=== PATIENT | female | born 1995 | race Caucasian/White ===

== ENCOUNTER 2018-11-15 00:33 | Emergency (ER) | payer SELFPAY ==
[~2018-11-15] VITALS: Ht 167.6 cm; Wt 119.5 kg
[~2018-11-15 00:33] MED LIST: FAMO-96 PO; IBUP-1542 PO; NITR-58 PO; ONDA4TAB14 PO; TRAM50TA2 PO
[2018-11-15 00:41] VITALS: Ht 167.6 cm; Wt 119.5 kg
[2018-11-15] MEDS ORDERED: KETOROLAC 30 MG INJ IM STA (00:53)
[2018-11-15] MEDS ORDERED: ONDANSETRON (ODT) 4 MG TAB ODT STA (01:13)
--- NOTE | 2018-11-15 01:21 | ERD ---
ER Documentation Chief Complaint Chief Complaint Epigastric pain,n/v since 9pm HPI 23-year-old female with no reported past medical or surgical history, obesity who presents with complaint of epigastric abdominal pain since around 9 PM this morning. Describes pain as sharp type pain is intermittent radiation, patient reports feeling like spasms. Patient had intermittent nausea and vomiting about 3 episodes of nonbilious nonbloody. She otherwise reports chills but no fevers, no diarrhea, constipation, dysuria, vaginal bleeding, vaginal discharge. Currently on last days of her menstrual cycle. Last meal before onset of sym ptoms around 1 PM and consisted of being salmon cooked at home. She otherwise is without complaint. ROS All systems reviewed and are negative except as per history of present illness. Medications Home Meds Active Scripts Ibuprofen* (Motrin*) 600 Mg Tab, 600 MG PO Q6H PRN for PAIN AND OR ELEVATED TEMP, #30 TAB Prov:KELVIN RAWLS PA-C 11/15/18 Tramadol HCl (Tramadol HCl) 50 Mg Tablet, 50 MG PO Q6 PRN for PAIN, #20 TAB Prov:JEKELVIN URIARTE PA-C 11/15/18 Famotidine* (Pepcid*) 20 Mg Tablet, 20 MG PO BID for 4 Days, TAB Prov:KELVIN RAWLS PA-C 11/15/18 Ondansetron (Ondansetron Odt) 4 Mg Tab.rapdis, 4 MG PO Q6H PRN for NAUSEA AND/OR VOMITING, #10 TAB Prov:JEADEOLA URIARTEHO PA-C 11/15/18 Allergies Allergies: Coded Allergies: No Known Allergy (Unverified , 11/15/18) PMhx/Soc Medical and Surgical Hx: pt denies Medical Hx, pt denies Surgical Hx History of Surgery: No Anesthesia Reaction: No Hx Neurological Disorder: No Hx Respiratory Disorders: No Hx Cardiac Disorders: No Hx Psychiatric Problems: No Hx Miscellaneous Medical Probl: No Hx Alcohol Use: No Hx Substance Use: No Hx Tobacco Use: No Smoking Status: Never smoker FmHx Family History: No diabetes, No coronary disease, No other Physical Exam Vitals Vital Signs Date Temp Pulse Resp B/P (MAP) Pulse Ox O2 O2 Flow FiO2 Time Delivery Rate 11/15/18 99.6 84 17 121/78 98 00:41 (92) Physical Exam I have reviewed the triage vital signs. Const: Well nourished, well developed, appears stated age, morbidly obese Eyes: PERRL, no conjunctival injection HENT: NCAT, Neck supple without meningismus CV: RRR, Warm, well-perfused extremities RESP: CTAB, Unlabored respiratory effort GI: soft, tender to deep palpation to epigastrium, no flank tenderness, no right upper quadrant tenderness, non-distended, no masses MSK: No gross deformities appreciated Skin: Warm, dry. No rashes Neuro: grossly non focal Psych: Appropriate mood and affect. Result Diagram: 11/15/18 0110 Results 24 hrs Laboratory Tests Test 11/15/18 01:00 11/15/18 01:10 POC Beta HCG, Qualitative NEGATIVE White Blood Count 16.4 10^3/ul Red Blood Count 4.90 10^6/ul Hemoglobin 10.7 g/dl Hematocrit 36.4 % Mean Corpuscular Volume 74.3 fl Mean Corpuscular Hemoglobin 21.8 pg Mean Corpuscular Hemoglobin Concent 29.4 g/dl Red Cell Distribution Width 17.8 % Platelet Count 325 10^3/UL Mean Platelet Volume 10.3 fl Immature Granulocytes % 0.400 % Neutrophils % 73.1 % Lymphocytes % 20.0 % Monocytes % 5.7 % Eosinophils % 0.5 % Basophils % 0.3 % Nucleated Red Blood Cells % 0.0 /100WBC Immature Granulocytes # 0.070 10^3/ul Neutrophils # 12.0 10^3/ul Lymphocytes # 3.3 10^3/ul Monocytes # 0.9 10^3/ul Eosinophils # 0.1 10^3/ul Basophils # 0.1 10^3/ul Nucleated Red Blood Cells # 0.0 10^3/ul Urine Color YADIEL Urine Clarity CLOUDY Urine pH 6.0 Urine Specific [place] 1.023 Urine Ketones NEGATIVE mg/dL Urine Nitrite NEGATIVE mg/dL Urine Bilirubin NEGATIVE mg/dL Urine Urobilinogen NEGATIVE mg/dL Urine Leukocyte Esterase 2+ Virginie/ul Urine Microscopic RBC > 182 /HPF Urine Microscopic WBC 123 /HPF Urine Squamous Epithelial Cells MANY /HPF Urine Bacteria FEW /HPF Urine Mucus MODERATE /HPF Urine Hemoglobin 3+ mg/dL Urine Glucose NEGATIVE mg/dL Urine Total Protein 2+ mg/dl Current Medications Medications Dose Sig/Royce Start Time Status Last (Trade) Ordered Route PRN Stop Time Admin Dose Reason Admin Ketorolac 30 mg ONCE STAT 11/15/18 DC 11/15/18 Tromethamine IM 00:53 01:11 (Toradol) 11/15/18 00:58 Ondansetron 4 mg ONCE STAT 11/15/18 DC 11/15/18 HCl (Zofran ODT 01:13 01:17 Odt) 11/15/18 01:14 40 ml ONCE ONCE 11/15/18 DC 11/15/18 Miscellaneous PO 01:30 01:35 Medication 11/15/18 01:31 (Gi Cocktail (2)) Procedures/MDM 23 yo non- woman presenting with abdominal pain. Given patients test is negative, highly doubt ectopic . Considered causes of female-specific abdominal pain unrelated to (e.g., pelvic inflammatory disease with or without tubo-ovarian abscess, [id number], etc.). Also considered causes of abdominal pain that are not gender-specific (e.g., appendicitis, volvulus, small bowel obstruction, mesenteric adenitis, acute cholecystitis/choledocholithiasis and other biliary pathology, etc.). Patient well-appearing with normal vital signs. Laboratory testing and imaging here reviewed and normal. Patient given strict return precautions for worsening pain, inability to eat/drink, fevers (temperature over 100.4F), or other concerns. Patient instructed to follow up with their primary doctor and is agreeable; all questions were answered. ED course: Gallbladder ultrasound UA 123 WBC, 2+ leukocyte esterase, positive RBC Labs Patient signed out to GLORIA Beal, to follow up labs and imaging, additional Rx DISPOSITION PLAN: We discussed follow up with the patient's primary care doctor within 24 to 48 hours. Patient counseled regarding my diagnostic impression and care plan. Prior to discharge all questions answered. Pt agrees with treatment plan and underst ands strict return precautions. Precautionary instructions provided including instructions to return to the ER if not improving or for any worsening or changing symptoms or concerns. Disclaimer: Inadvertent spelling and grammatical errors are likely due to EHR/dictation software use and do not reflect on the overall quality of patient care. Also, please note that the electronic time recorded on this note does not necessarily reflect the actual time of the patient encounter. Departure Diagnosis: Primary Impression: Epigastric pain Condition: Stable KELVIN RAWLS PA-C Nov 15, 2018 01:21
[2018-11-15] MEDS ORDERED: LIDOCAINE/MYLANTA 40 ML BTL PO ONE (01:30)
--- NOTE | 2018-11-15 02:03 | EN ---
Date/Time of Note Date/Time of Note DATE: 11/15/18 TIME: 01:56 ER Progress Note Patient was signed out to me pending blood work and imaging study results. In summary, patient is a 23-year-old female who presents the ER for concerns of epigastric pain and vomiting which started approximately 4 hours ago. Patient denied any fevers. Patient denies any chest pain or shortness of breath. Patient denied any urinary symptoms. MEDICAL DECISION MAKING: Patient is a 23-year-old female presents to the ER for concerns of epigastric pain along with vomiting which started 4 hours ago. Patient states she did eat spicy foods for dinner. Vital signs were reviewed. Patient is afebrile. Patient was not hypoxic. Patient was hemodynamically stable. CBC showed WBC count of 16.4. Mild anemia noted. No indication for emergent blood test at this time. Patient's neutrophil count was within normal limits. CMP showed no evidence of electrolyte abnormalities, severe acidosis, alkalosis, renal failure, or liver disease. Lipase showed no evidence of acute pancreatitis. UA showed no evidence of acute infection or hematuria. Low suspicion for UA did show 2+ leukocyte esterase, positive WBCs and positive RBCs. Please note patient is on her menstrual period. Gallbladder ultrasound was unremarkable. See formal report. Patient was given Toradol, Zofran and GI cocktail. Upon repeat examination by myself, patient had improvement in pain. Patient denies any additional abdomina l pain. Patient no episodes of vomiting throughout the ED course. Given that patient's pain was improved, I did not feel that CT imaging is indicated at this time. Patient was advised to monitor symptoms closely and return to the ER in 8 to 10 hours for abdominal pain recheck. Patient advised to return sooner for any new or worsening symptoms. Patient understood. Patient will be discharged home with prescription for tramadol, Pepcid and Zofran as written by GLORIA Berg. At this time, patient's presentation is most consistent with epigastric pain and UTI. Low supsicion for acute coronary syndrome, AAA, mesenteric ischemia, l ower lobe pneumonia, DKA, bowel perforation, cholecystitis, choledocholithiasis, ascending cholangitis, hepatic abscess, pancreatitis, PUD, gastritis, GERD, splenic rupture, diverticulitis, pyelonephritis, nephrolithiasis, appendicitis, constipation, , ectopic , PID, ovarian torsion or tubo-ovarian abscess. DISCHARGE: At this time, patient is stable for discharge and outpatient management. I have instructed the patient to follow-up with his/her primary care physician in 1-2 days. I have instructed the patient to promptly return to the ER at any time for any new or worsening symptoms including increased pain, nausea, vomiting, diarrhea, fever, weakness or LOC. The patient and/or family expressed understanding of and agreement with this plan. All questions were answered. Home care instructions were provided. Home care instructions were provided. Disclaimer: Inadvertent spelling and grammatical errors are likely due to EHR/dictation software use and do not reflect on the overall quality of patient care. Also, please note that the electronic time recorded on this note does not necessarily reflect the actual time of the patient encounter. FAUSTO GIRON PA-C Nov 15, 2018 02:03
[2018-11-15 02:12] VITALS: BP 100/57; PULSE 65; RESP 18
== END 2018-11-15 02:13 | disposition home or self-care (01) ==
LOC: FTE 00:33
DX: R10.13 Epigastric pain (principal)
CPT/HCPCS: 36415; 76705; 80053; 81001; 81025; 83690; 85025; 87086; 96372; 99285; J1885